=== PATIENT | female | born 1945 | race Caucasian/White ===

== ENCOUNTER 2023-10-28 15:34 | Day surgery (SDC) | payer MEDICARE, BC ==
[2023-10-28] MEDS: Polymyxin B/Trimethoprim 10 ML Bottle EYERT SCH (16:06)
[2023-10-28] MEDS: Brimonidine 0.2% Ophth Soln 5 ML Bottle EYERT SCH (16:10)
[2023-10-28] MEDS: Phenylephrine 2.5% Ophth Soln 2 ML Bot EYERT SCH (16:14)
[2023-10-28] MEDS: Tropicamide 1% Ophth Soln 3 ML Bottle EYERT SCH (16:19)
[2023-10-28] MEDS: Tetracaine HCl/PF 0.5% 4 ML Bottle EYEBOTH SCH (17:13)
[2023-10-28] MEDS: Lidocaine 1% PF 2 ML SDV INJECT SCH (17:31)
[2023-10-28] MEDS: Pilocarpine 4% Ophth Soln 15 ML Bot EYERT SCH (17:46)
[2023-10-28] MEDS: Cefuroxime 10 MG/ML SYRINGE EYERT SCH (17:46)
== END 2023-10-28 17:58 | disposition home or self-care (01) ==
LOC: JD.SDS 15:34
PROVIDERS: ATTEND Ophthalmology
DX: H25.813 Combined forms of age-related cataract, bilateral (principal); I10 Essential (primary) hypertension; E78.2 Mixed hyperlipidemia; F41.9 Anxiety disorder, unspecified; Z79.899 Other long term (current) drug therapy
CPT/HCPCS: 66984; A9270; J0697; J3490; V2632

== ENCOUNTER 2023-12-02 08:10 | Day surgery (SDC) | payer MEDICARE, BC ==
[2023-12-02] MEDS: Polymyxin B/Trimethoprim 10 ML Bottle EYELF SCH (07:56)
[2023-12-02] MEDS: Brimonidine 0.2% Ophth Soln 5 ML Bottle EYELF SCH (08:00)
[2023-12-02] MEDS: Phenylephrine 2.5% Ophth Soln 2 ML Bot EYELF SCH (08:11)
[2023-12-02] MEDS: Tropicamide 1% Ophth Soln 3 ML Bottle EYELF SCH (08:15)
[2023-12-02] MEDS: Tetracaine HCl/PF 0.5% 4 ML Bottle EYEBOTH SCH (09:32)
[2023-12-02] MEDS: Lidocaine 1% PF 2 ML SDV INJECT SCH (09:54)
[2023-12-02] MEDS: Cefuroxime 10 MG/ML SYRINGE EYELF SCH (10:03)
[2023-12-02] MEDS: Pilocarpine 4% Ophth Soln 15 ML Bot EYELF SCH (10:06)
== END 2023-12-02 10:18 | disposition home or self-care (01) ==
LOC: JD.SDS 08:10
PROVIDERS: ATTEND Ophthalmology
DX: H25.812 Combined forms of age-related cataract, left eye (principal); H21.81 Floppy iris syndrome; I10 Essential (primary) hypertension; E78.2 Mixed hyperlipidemia; F41.9 Anxiety disorder, unspecified; Z79.899 Other long term (current) drug therapy
CPT/HCPCS: A9270-GY; J0697; J3490

== ENCOUNTER 2024-07-06 11:13 | Emergency (ER) | payer MEDICARE, BC ==
[2024-07-06 12:27] LABS: APPEARANCE,URINE CLEAR (Clear); BILIRUBIN,URINE NEGATIVE (Negative); COLOR,URINE YELLOW (Yellow); GLUCOSE,URINE NEGATIVE (Negative); KETONES,URINE NEGATIVE (Negative); LEUKOCYTE ESTERASE,URINE TRACE (Negative); NITRITE,URINE NEGATIVE (Negative); OCCULT BLOOD,URINE NEGATIVE (Negative); PROTEIN,URINE NEGATIVE (Negative)
[2024-07-06 12:43] LABS: BACTERIA,URINE FEW /hpf (FEW); MUCUS,URINE FEW /hpf (FEW); RBC,URINE 0-5 /hpf (0-5); SQUAMOUS EPITHELIAL CELLS,UR 0-5 /hpf (0-5)
[2024-07-06] MEDS: Amoxicillin/Clavulanate K 875-125 MG Tab PO ONE (13:26)
== END 2024-07-06 13:25 ==
LOC: JD.ED 11:13
DX: K57.12 Diverticulitis of small intestine without perforation or abscess without bleeding (principal); I10 Essential (primary) hypertension; E78.00 Pure hypercholesterolemia, unspecified; E03.9 Hypothyroidism, unspecified; Z90.710 Acquired absence of both cervix and uterus; Z79.899 Other long term (current) drug therapy
CPT/HCPCS: 74176; 81001; 87086; 99284; A9270

== ENCOUNTER 2024-09-04 16:37 | Emergency (ER) | payer MEDICARE, BC ==
[2024-09-04] MEDS: Piperacillin/Tazobactam 4.5 GM in Sodium Chloride 0.9% 100 ML IV ONE (18:06)
[2024-09-04] MEDS ORDERED: Sodium Chloride 0.9% 10 ML Syringe FLUSH PRN (18:14)
[2024-09-04 19:39] LABS: INR 0.93; PROTHROMBIN TIME 9.9 SECONDS (9.7-12.0)
[2024-09-04 19:40] LABS: PTT,PARTIAL THROMBOPLSTIN TIME 21.7 SECONDS (21.7-31.4)
[2024-09-04] MEDS ORDERED: Naloxone 0.4 MG/ML SDV IVPUSH PRN (20:24)
[2024-09-04] MEDS: Ondansetron 4 MG/2 ML SDV IVPUSH ONE (20:26)
[2024-09-04] MEDS: HYDROmorphone 0.5 MG/0.5 ML Syringe IVPUSH ONE (20:26)
== END 2024-09-04 20:27 ==
LOC: JD.ED 16:37
DX: K35.33 Acute appendicitis with perforation, localized peritonitis, and gangrene, with abscess (principal); I10 Essential (primary) hypertension; E03.9 Hypothyroidism, unspecified; Z79.899 Other long term (current) drug therapy; Z90.49 Acquired absence of other specified parts of digestive tract; Z90.710 Acquired absence of both cervix and uterus
CPT/HCPCS: 36415; 74176; 80053; 85025; 85610; 85730; 86140; 96365; 96375; 99215; 99284; J2405; J2543; 99285; J1171